=== PATIENT | male | born 1990 | race Caucasian/White ===

== ENCOUNTER 2017-04-07 01:46 | Emergency (ER) | payer OTHER ==
[~2017-04-07] VITALS: Ht 170.2 cm; Wt 55.5 kg
[~2017-04-07 01:46] MED LIST: IBUPROFEN PM C1 EACH PO; ROBITUSSIN COU118 M1 PO
[2017-04-07 02:35] LABS: HEMATOCRIT 36.5 % (38.0-50.0); MCH 21.6 PG (29.0-34.0); MCHC 31.5 G/DL (30.0-36.0); MCV 68.5 FL (86-99); PLATELET COUNT 163 K/uL (156-360); RBC DIS.WIDTH-CV 19.5 % (11.8-14.6); RBC DIS.WIDTH-SD 45.9 % (39-53); RED BLOOD COUNT 5.33 M/uL (4.00-5.50); WHITE BLOOD COUNT 4.5 K/uL (4.1-10.2)
[2017-04-07 02:36] LABS: CHLORIDE 99 mEq/L (99-109); SODIUM 132 mEq/L (136-147)
[2017-04-07 02:38] LABS: GLUCOSE 109 mg/dL (70-99)
[2017-04-07 02:39] LABS: ANION GAP 11 MEQ/L (2-14)
[2017-04-07 02:42] LABS: GFR ESTIMATE (CALCULATED) > 59 mL/min/
[2017-04-07 02:43] LABS: UREA NITROGEN (BUN) 11 mg/dL (9-23)
[2017-04-07] MEDS ORDERED: DOXYCYCLINE HY100 MG PO (02:52)
[2017-04-07 03:25] VITALS: BP 108/65
[2017-04-07 10:03] LABS: LYME DISEASE SEROLOGY SCREEN NEGATIVE (NEGATIVE)
== END 2017-04-07 03:26 | disposition home or self-care (01) ==
LOC: EME 01:46
PROVIDERS: Physician Assistant
DX: A69.20 Lyme disease, unspecified (principal); A26.0 Cutaneous erysipeloid; Z87.891 Personal history of nicotine dependence
CPT/HCPCS: 80048; 83605; 85027; 86618; 99281; 99284

== ENCOUNTER 2018-01-19 02:42 | Inpatient (IN) | payer OTHER ==
[2018-01-19] VITALS (23 sets, daily range): BP systolic 79–137; BP diastolic 47–85
[~2018-01-19] VITALS: Ht 165.1 cm; Wt 56.2 kg
[~2018-01-19 02:42] MED LIST changes: +DOXYCYCLINE HY100 MG PO
[2018-01-19 03:03] LABS: BASOPHIL (%) 0.7 % (0-1); BASOPHIL COUNT 0.1 K/uL (0-0.1); EOSINOPHIL (%) 1.4 % (0-5); EOSINOPHIL COUNT 0.2 K/uL (0-0.3); HEMATOCRIT 35.7 % (38.0-50.0); HEMOGLOBIN 10.4 G/DL (12.5-16.6); IMMATURE GRANULOCYTE (%) 0.6 % (0.0-0.7); LYMPHOCYTE (%) 26.4 % (15-42); LYMPHOCYTE COUNT 3.1 K/uL (1.0-2.8); MCH 19.8 PG (29.0-34.0); MCHC 29.1 G/DL (30.0-36.0); MCV 67.9 FL (86-99); MONOCYTE (%) 9.6 % (3-12); MONOCYTE COUNT 1.1 K/uL (0-0.8); NEUTROPHIL (%) 61.3 % (45-76); NEUTROPHIL COUNT 7.3 K/uL (1.8-6.4); PLATELET COUNT 309 K/uL (156-360); RBC DIS.WIDTH-CV 17.8 % (11.8-14.6); RBC DIS.WIDTH-SD 41.9 % (39-53); RED BLOOD COUNT 5.26 M/uL (4.00-5.50); WHITE BLOOD COUNT 11.8 K/uL (4.1-10.2)
[2018-01-19 03:07] LABS: AMYLASE 70 IU/L (1-118); CHLORIDE 109 mEq/L (99-109); POTASSIUM 3.3 mEq/L (3.7-5.4); SODIUM 140 mEq/L (136-147)
[2018-01-19 03:09] LABS: GLUCOSE 123 mg/dL (70-99)
[2018-01-19 03:12] LABS: SERUM ETHYL ALCOHOL 188 mg/dL
[2018-01-19 03:13] LABS: CREATININE 1.1 mg/dL (0.6-1.3); GFR ESTIMATE (CALCULATED) > 59 mL/min/ (58.99-99999)
[2018-01-19 03:14] LABS: UREA NITROGEN (BUN) 9 mg/dL (9-23)
[2018-01-19 03:16] LABS: LIPASE 132 U/L (1.0-51.0)
[2018-01-19 03:23] LABS: APPEARANCE CLEAR ((CLEAR)); BILIRUBIN NEGATIVE; BLOOD NEGATIVE; COLOR STRAW ((YELLOW)); GLUCOSE (STRIP) NEGATIVE; KETONES NEGATIVE; LEUKOCYTES NEGATIVE; NITRITE NEGATIVE; PROTEIN (STRIP) NEGATIVE; SPECIFIC GRAVITY 1.003 (1.000-1.030); UCUL ADDED? NO; UROBILINOGEN 0.2 MG/DL (0.2-1.0)
[2018-01-19 03:31] LABS: AMPHETAMINE NEGATIVE (500 ng/mL); BARBITURATES NEGATIVE (200 ng/mL); BENZODIAZEPINES NEGATIVE (150 ng/mL); BUPRENORPHINE NEGATIVE (10 ng/mL); COCAINE NEGATIVE (150 ng/mL); METHADONE NEGATIVE (200 ng/mL); METHAMPHETAMINE NEGATIVE (500 ng/mL); OPIATES (MORPHINE) NEGATIVE (100 ng/mL); OXYCODONE NEGATIVE (100 ng/mL); PHENCYCLIDINE NEGATIVE (25 ng/mL); PROPOXYPHENE NEGATIVE (300 ng/mL); THC CANNABINOIDS PRESUMPTIVE POSITIVE (50 ng/mL); TRICYCLIC ANTIDEPRESSANTS NEGATIVE (300 ng/mL)
[2018-01-19 04:10] LABS: PHOSPHORUS 3.3 mg/dL (2.5-4.9)
[2018-01-19 05:31] LABS: BASE EXCESS -6.6 mEq/L (-3 to +3); BICARBONATE 19.1 mEq/L (22-26); CARBOXY HGB 1.8 % (0-5); METHEMOGLOBIN 1.5 % (0-1.5); PCO2 38 mm Hg (35-45); PO2 176 mm Hg (80-100); pH 7.31 (7.35-7.45)
[2018-01-19 05:32] LABS: COMMENTS - BLOOD GASES C; DEVICE VENT; FI02 40 %; MECHANICAL RATE 12 resp/min; MODE SIMV; PEEP 5 CM/H20; PRES. SUPPORT 15 CM/H2O; SITE LB; TIDAL VOLUME 500 ML; TOTAL RESP RATE 12 resp/min
[2018-01-19 13:29] LABS: BASOPHIL (%) 0.3 % (0-1); EOSINOPHIL (%) 0.9 % (0-5); EOSINOPHIL COUNT 0.1 K/uL (0-0.3); HEMATOCRIT 29.2 % (38.0-50.0); IMMATURE GRANULOCYTE (%) 0.4 % (0.0-0.7); LYMPHOCYTE (%) 9.9 % (15-42); LYMPHOCYTE COUNT 0.9 K/uL (1.0-2.8); MCH 19.4 PG (29.0-34.0); MCHC 28.8 G/DL (30.0-36.0); MCV 67.3 FL (86-99); MONOCYTE (%) 10.2 % (3-12); MONOCYTE COUNT 0.9 K/uL (0-0.8); NEUTROPHIL (%) 78.3 % (45-76); NEUTROPHIL COUNT 7.1 K/uL (1.8-6.4); PLATELET COUNT 252 K/uL (156-360); RBC DIS.WIDTH-CV 17.6 % (11.8-14.6); RBC DIS.WIDTH-SD 42.6 % (39-53); RED BLOOD COUNT 4.34 M/uL (4.00-5.50)
[2018-01-19 13:36] LABS: HEMOGLOBIN 8.4 G/DL (12.5-16.6)
[2018-01-19 13:40] LABS: BENZODIAZEPINES, URINE SCREEN POSITIVE (200 ng/mL)
[2018-01-19 13:51] LABS: CHLORIDE 115 MEQ/L (99-109); CREATININE 0.9 MG/DL (0.6-1.3); GFR ESTIMATE (CALCULATED) > 59 mL/min/ (58.99-99999); MAGNESIUM 1.9 mg/dl (1.3-2.7); PHOSPHORUS 2.9 mg/dL (2.5-4.9); SODIUM 143 MEQ/L (136-147); UREA NITROGEN (BUN) 6 mg/dL (9-23)
[2018-01-19 13:54] LABS: GLUCOSE 91 mg/dL (70-99); POTASSIUM 4.1 MEQ/L (3.7-5.4)
[2018-01-20] VITALS (23 sets, daily range): BP systolic 95–124; BP diastolic 52–98
[2018-01-20 06:01] LABS: ALBUMIN 3.4 G/DL (3.2-4.8); ALKALINE PHOSPHATASE 71 IU/L (3-129); ALT (GPT) 12 IU/L (3-49); AST (GOT) 20 IU/L (2-34); CHLORIDE 115 MEQ/L (99-109); CREATININE 0.8 MG/DL (0.6-1.3); GFR ESTIMATE (CALCULATED) > 59 mL/min/ (58.99-99999); GLUCOSE 95 mg/dL (70-99); POTASSIUM 4.1 MEQ/L (3.7-5.4); SODIUM 145 MEQ/L (136-147); TOTAL BILIRUBIN 0.4 MG/DL (0.0-1.0); TOTAL PROTEIN 5.1 G/DL (6.4-8.3); UREA NITROGEN (BUN) 6 mg/dL (9-23)
[2018-01-20 06:12] LABS: HEMATOCRIT 28.9 % (38.0-50.0); HEMOGLOBIN 8.4 G/DL (12.5-16.6); MCHC 29.1 G/DL (30.0-36.0); MCV 68.6 FL (86-99); PLATELET COUNT 250 K/uL (156-360); RBC DIS.WIDTH-CV 18.5 % (11.8-14.6); RBC DIS.WIDTH-SD 44.7 % (39-53); RED BLOOD COUNT 4.21 M/uL (4.00-5.50); WHITE BLOOD COUNT 8.6 K/uL (4.1-10.2)
[2018-01-20 17:27] LABS: PCO2 39 mm Hg (35-45); PO2 168 mm Hg (80-100); pH 7.42 (7.35-7.45)
[2018-01-20 17:28] LABS: BASE EXCESS 0.8 mEq/L (-3 to +3); BICARBONATE 25.3 mEq/L (22-26); CARBOXY HGB 1.7 % (0-5); COMMENTS - BLOOD GASES A+C+; DEVICE 980; FI02 40 %; METHEMOGLOBIN 1.2 % (0-1.5); PEEP 5 CM/H20; PRES. SUPPORT 10 CM/H2O; SITE RR; TOTAL RESP RATE 10 resp/min
[2018-01-21] VITALS (11 sets, daily range): BP systolic 114–139; BP diastolic 70–102
[2018-01-22 07:53] VITALS: BP 122/72
[2018-01-22] MEDS ORDERED: NORCO 5/3251 TABLET PO (11:30)
== END 2018-01-22 12:53 | disposition home or self-care (01) | DRG 85 ==
LOC: TRA 02:42 → EDOF 03:59 → 4WEST 03:59 → ENRESERV 04:00 → 4WEST 04:56 → ENRESERV 01-21 09:06 → 3EAST 01-21 12:46
PROVIDERS: Emergency Medicine; Specialist; Surgery
DX: S02.19XA Other fracture of base of skull, initial encounter for closed fracture (principal); S06.0X9A Concussion with loss of consciousness of unspecified duration, initial encounter; S02.82XA Fracture of other specified skull and facial bones, left side, initial encounter for closed fracture; S02.32XA Fracture of orbital floor, left side, initial encounter for closed fracture; S01.81XA Laceration without foreign body of other part of head, initial encounter; S01.112A Laceration without foreign body of left eyelid and periocular area, initial encounter; S05.12XA Contusion of eyeball and orbital tissues, left eye, initial encounter; V47.5XXA Car driver injured in collision with fixed or stationary object in traffic accident, initial encounter; Y92.410 Unspecified street and highway as the place of occurrence of the external cause; J96.00 Acute respiratory failure, unspecified whether with hypoxia or hypercapnia; E87.6 Hypokalemia; F10.129 Alcohol abuse with intoxication, unspecified; Y90.6 Blood alcohol level of 120-199 mg/100 ml; D64.9 Anemia, unspecified; M25.512 Pain in left shoulder; R05 Cough; F16.90 Hallucinogen use, unspecified, uncomplicated; F11.90 Opioid use, unspecified, uncomplicated; F12.10 Cannabis abuse, uncomplicated; R41.3 Other amnesia; F31.9 Bipolar disorder, unspecified; F60.3 Borderline personality disorder; F14.90 Cocaine use, unspecified, uncomplicated; F17.210 Nicotine dependence, cigarettes, uncomplicated; Z91.5 Personal history of self-harm; Z68.1 Body mass index [BMI] 19.9 or less, adult
CPT/HCPCS: 36600; 70450; 70486; 71045; 71260; 72125; 72129; 72132; 74177; 80048; 80048 91; 80053; 80306 90; 81003; 82150; 82803; 83690; 83735; 84100; 84999; 85025; 85025 91; 85027; 85610; 86850; 86900; 86901; 87070; 87205; 87641; 90832; 94002; 94003; 94760; 99202; 99281; 99285; G0480; J0690; J2250; J2405; J2704; J3010; J3411; J7042; J7050